=== PATIENT | male | born 2000 | race Caucasian/White ===

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

== ENCOUNTER 2025-06-15 16:44 | Emergency (ER) | payer BC ==
[~2025-06-15] VITALS: Ht 180.3 cm; Wt 80.4 kg
[~2025-06-15 16:44] MED LIST changes: +HYDROCODON-ACE1 EA11 PO
[2025-06-15] MEDS ORDERED: VYVANSE30 MG PO (16:55)
[2025-06-15] MEDS ORDERED: DIPHTH,PERTUSS(ACELL),TET VAC 0.5 ML SYRINGE IM ONE (17:00)
[2025-06-15 17:18] VITALS: BP 137/85
[2025-06-15] MEDS ORDERED: CEPHALEXIN500 MG PO (17:24)
[2025-06-15] MEDS ORDERED: CEPHALEXIN MONOHYDRATE 500 MG CAP PO ONE (17:30)
== END 2025-06-15 17:30 | disposition home or self-care (01) ==
LOC: ED 16:44
DX: S61.412A Laceration without foreign body of left hand, initial encounter (principal); W29.8XXA Contact with other powered hand tools and household machinery, initial encounter; Z79.899 Other long term (current) drug therapy; Z23 Encounter for immunization
CPT/HCPCS: 12001; 90471; 90715; 99283-25; A9270